=== PATIENT | female | born 1935 | race Caucasian/White ===

== ENCOUNTER 2019-10-05 07:07 | Day surgery (SDC) | payer MEDICARE, BC ==
[~2019-10-05] VITALS: Ht 177.8 cm; Wt 61.2 kg
--- NOTE | ~2019-10-05 | HP ---
PATIENT: DAVID MAYA MEDICAL RECORD: [id number] ACCOUNT: [id number] LOCATION:[facility] : 35 ADMISSION DATE: 10/05/19 PCP: CASSY IRAHETA HISTORY AND PHYSICAL EXAMINATION HISTORY OF PRESENT ILLNESS: Ms. Maya is an 84-year-old female with extensive sinus surgery due to invasive fungal sinusitis years ago. She had a DCR in 2010. She has done well with the lacrimal duct, but she started having problems again with dacryocystitis. She is being admitted for right endoscopic dacryocystorhinostomy. PAST MEDICAL HISTORY: Includes diabetes, reflux, fungal sinusitis. PAST SURGICAL HISTORY: Includes hip replacement, sinus surgery for frontal sinusitis in 2004, DCR in 2010. CURRENT MEDICATIONS: Acyclovir, Pazeo, Flomax, Claritin. ALLERGIES: No known drug allergies. PHYSICAL EXAMINATION: GENERAL: She is healthy-appearing, normal voice. FACE: Normal, symmetric, no lesions. EYES: Sclerae and conjunctivae are normal. EARS: Canals and TMs are normal. NOSE: No masses, polyps, or drainage. The right side, she had extensive post-surgical changes and no real lateral nasal wall there, but everything looks good. ORAL CAVITY AND OROPHARYNX: Tongue protrudes in midline. Pharynx is normal. NECK: No masses, no adenopathy. CHEST: Clear. CARDIOVASCULAR: Regular rate and rhythm, no murmur. EXTREMITIES: Normal. IMPRESSION: Chronic right dacryocystitis. PLAN: Right endoscopic DCR with stent placement. TRANSINT:[id number] Voice Confirmation ID: [id number] DOCUMENT ID: [id number] MANNIE WAKEFIELD MD CC: [id number] DICTATION DATE: 10/02/19953 [employer] SALES ENGINEER: 10/02/19 1147 PRE [facility] [address] [place] [address]
--- NOTE | ~2019-10-05 | OP ---
PATIENT NAME: DAVID ARZATE MEDICAL RECORD: [id number] :35 LOCATION:D.OPS ADMISSION DATE: SURGEON: PATRIC GUILLERMO MD DATE OF OPERATION: 10/05/2019 PREOPERATIVE DIAGNOSIS: Right chronic dacryocystitis. POSTOPERATIVE DIAGNOSIS: Right chronic dacryocystitis. PROCEDURE: Right endoscopic dacryocystorhinostomy. SURGEON: Patric Guillermo MD ANESTHESIA: General orotracheal. BLOOD LOSS: Less than 1 cc. SPECIMENS: None. COMPLICATIONS: None. DISPOSITION: Recovery stable. PROCEDURE NOTE: She was brought to the operating room and placed in supine position, sedated and intubated by anesthesia. The lacrimal ducts were examined. They are both severely dilated from 0000 up to #3 lacrimal duct probes. Then, the nose was examined. She had been decongested with Afrin and lateral nasal wall was injected with less than 0.5 mL of 1% lidocaine with 1:100,000 epinephrine. At the beginning of the procedure, she has had a pretty much of a right medial maxillectomy for invasive fungal sinusitis back in 2004. Both of the lacrimal duct probes from the stent were inserted and then entered the lacrimal sac and inferiorly into the nose and then using the scope were both of those probes were coming out next to each other. Upbiting pediatric forceps was used to remove the mucosa and bone. The mucosal flap was lifted and some small fragments of bone were lifted up. Suction was placed in there and created a nice fold. Then, both were pulled through with the stent material until there was correct tension in the eye. The nose were tied together repeatedly and then this was sutured to the septum with a 2-0 suture and tied off, both of these were cut. The eye was irrigated. She was awakened and transported to recovery in good condition. No complications. TRANSINT:[id number] Voice Confirmation ID: [id number] DOCUMENT ID: [id number] PATIRC GUILLERMO MD CC: [id number] DICTATION DATE: 10/05/19 1320 PRESS CLEANER: 10/05/19 232 [facility] 10/05/19 [facility] [address] [place] [id number]
[~2019-10-05 07:07] MED LIST: ACETAMINOPHEN500 M1 PO; BACTROBAN NASAL1 GM TP; COLACE100 MG PO; DULCOLAX5 MG PO; LOVENOX40 MG/0.4 SQ; MILK OF MAGNESI30 ML PO; PERCOCET 2.5/321 TAB PO; PERCOCET 5/3251 TA1 PO
[2019-10-05 07:37] LABS: ANION GAP 9.2 mmol/L (8-16); CALCIUM 9.9 mg/dL (8.5-10.1); CARBON DIOXIDE 33.8 mmol/L (21.0-32.0); CREATININE - SERUM 1.1 mg/dL (0.6-1.3)
[2019-10-05] MEDS ORDERED: CLARITIN 10 MG10 MG PO (07:53)
[2019-10-05] MEDS ORDERED: ALENDRONATE SOD35 MG PO ×2 (07:54→07:55)
[2019-10-05] MEDS ORDERED: DULCOLAX5 MG PO (07:55)
[2019-10-05] MEDS ORDERED: MIRALAX17 GM PO (07:57)
[2019-10-05 08:04] VITALS: BP 131/77; Ht 177.8 cm; Wt 61.2 kg
[2019-10-05 08:10] LABS: HEMATOCRIT 42.8 % (36.0-48.0); HEMOGLOBIN 13.7 g/dL (12-16); LYMPHOCYTES 41.8 % (15-50); MCH 28.5 pg (26.0-34.0); MCV 89.2 fL (80.0-100.0); MEAN PLATELET VOLUME 10.9 fL (7.4-10.4); RDW 13.2 % (11.5-14.5); WBC 5.9 10x3/uL (4.8-10.8)
[2019-10-05 08:13] LABS: PLATELET COUNT 203 10x3/uL (130-400)
--- NOTE | 2019-10-05 12:27 | NUR ---
PT. C\O NOT BEING ABLE TO BREATHE 1215 SATS FELL TO 92PERCENT O2 APPLIED SATS INPROVED TO 97PERCENT DR WILL CONSULTED , APPLIED NC AT 2l SATS @99 PERCENT
--- NOTE | 2019-10-05 13:08 | NUR ---
EKG AT 1233 REVIEWED WITH ANESTHESIA NO CHANGES NOTED
--- NOTE | 2019-10-05 14:35 | NUR ---
DC INSTRUCTIONS GIVEN TO PT/FAMILY. STATE UNDERSTANDING. PT STATES FEELING NAUSEOUS. WILL CONTINUE TO MONITOR.
--- NOTE | 2019-10-05 15:06 | NUR ---
PT LEFT UNIT VIA WC AT 1458
== END 2019-10-05 14:58 | disposition home or self-care (01) ==
LOC: D.OPS 07:07 → D.PAN 10:45 → D.OPS 10:45
PROVIDERS: Anesthesiology; ATTEND Otolaryngology
DX: H04.301 Unspecified dacryocystitis of right lacrimal passage (principal); E11.9 Type 2 diabetes mellitus without complications; K21.9 Gastro-esophageal reflux disease without esophagitis; J32.8 Other chronic sinusitis